=== PATIENT | female | born 1960 | race Two or more races ===

== ENCOUNTER 2018-02-17 14:33 | Emergency (ER) | payer OTHER ==
[~2018-02-17] VITALS: Ht 167.6 cm; Wt 95.3 kg
== END 2018-02-17 22:41 | disposition home or self-care (01) ==
LOC: ER 14:33
DX: R10.32 Left lower quadrant pain (principal)

== ENCOUNTER 2021-07-14 12:22 | Emergency (ER) | payer OTHER ==
[~2021-07-14] VITALS: Ht 165.1 cm; Wt 90.3 kg
== END 2021-07-14 18:17 | disposition home or self-care (01) ==
LOC: ER 12:22
DX: U07.1 COVID-19 (principal); J45.909 Unspecified asthma, uncomplicated; G70.00 Myasthenia gravis without (acute) exacerbation

== ENCOUNTER 2021-07-18 10:08 | Outpatient (CLI) | payer OTHER | END 2021-07-18 10:39 | disposition home or self-care (01) | LOC: ASH CLINIC 10:08 | PROVIDERS: ATTEND General Practice | DX: U07.1 COVID-19 (principal); Z23 Encounter for immunization ==

== ENCOUNTER 2022-03-11 10:54 | Emergency (ER) | payer OTHER ==
[~2022-03-11] VITALS: Ht 167.6 cm; Wt 92.5 kg
[~2022-03-11 10:54] MED LIST: MAXIMUM D3325 MCG; MELOXICAM15 MG; MESTINON60 M1 PO
[2022-03-11] MEDS ORDERED: CIPRO500 MG PO (16:11)
[2022-03-11] MEDS ORDERED: METRONIDAZOLE500 MG PO (16:11)
[2022-03-11] MEDS ORDERED: INTESTINEX680 M1 PO (16:11)
== END 2022-03-11 16:21 | disposition home or self-care (01) ==
LOC: ER 10:54
DX: K57.32 Diverticulitis of large intestine without perforation or abscess without bleeding (principal); N20.0 Calculus of kidney; G47.30 Sleep apnea, unspecified; Z88.8 Allergy status to other drugs, medicaments and biological substances; Z91.040 Latex allergy status

== ENCOUNTER 2022-10-06 10:49 | Emergency (ER) | payer OTHER ==
[~2022-10-06] VITALS: Ht 167.6 cm; Wt 95.3 kg
[~2022-10-06 10:49] MED LIST changes: +CIPRO500 MG PO; +INTESTINEX680 M1 PO; +METRONIDAZOLE500 MG PO
== END 2022-10-06 12:40 | disposition home or self-care (01) ==
LOC: ER 10:49
DX: L03.311 Cellulitis of abdominal wall (principal); G70.00 Myasthenia gravis without (acute) exacerbation; Z91.040 Latex allergy status; Z88.8 Allergy status to other drugs, medicaments and biological substances

== ENCOUNTER 2022-11-11 18:52 | Emergency (ER) | payer OTHER ==
[~2022-11-11] VITALS: Ht 167.6 cm; Wt 95.3 kg
== END 2022-11-12 00:22 | disposition home or self-care (01) ==
LOC: ER 18:52
DX: L03.90 Cellulitis, unspecified (principal)

== ENCOUNTER 2024-01-01 08:26 | Emergency (ER) | payer OTHER ==
[~2024-01-01] VITALS: Ht 167.6 cm; Wt 93.4 kg
[2024-01-01] MEDS ORDERED: DEXAMETHASONE SODIUM PHOSPHATE 4 MG/ML VIAL IM STA (09:20)
[2024-01-01] MEDS ORDERED: CODEINE PHOSPHATE/GUAIFENESIN 5 ML ML PO STA (09:20)
[2024-01-01] MEDS ORDERED: DEXAMETHASONE SODIUM PHOSPHATE 4 MG/ML VIAL ONE (09:26)
[2024-01-01 10:25] LABS: HEMATOCRIT 41.3 % (36.0-45.00); HEMOGLOBIN 13.9 g/dL (12.0-15.00); MEAN CELL VOLUME 83.7 fL (80.00-100.00); MEAN CORPUSCULAR HEMOGLOBIN 28.1 pg (27.00-32.0); MEAN CORPUSCULAR HGB CONC 33.6 g/dl (32.0-36.0); PLATELET COUNT 144 K/uL (150-450); RED BLOOD COUNT 4.94 M/uL (4.00-6.00); RED CELL DISTRIBUTION WIDTH 14.3 % (11.5-14.5)
[2024-01-01 10:49] LABS: ABG PH 7.405 (7.35-7.45); ABG PO2 83.6 mmHg (80-100); ABG pCO2 39.7 mmHg (35-45); BASE EXCESS -0.3 mmol/l; BICARBONATE 24.3 mmol/l (23-25); SaO2 96.2 %; Tco2 25.5 mmol/l; allen test SATISFACTORY; o2 21 %; puncture site RADIAL LEFT
[2024-01-01 11:02] LABS: CALCIUM 9.6 mg/dL (8.5-10.1); CREATININE SERUM 0.6 mg/dL (0.55-1.02); GFR 100.97; POTASSIUM 3.9 mEq/L (3.5-5.1)
[2024-01-01] MEDS ORDERED: PROAIR RESPICL90 MCG IH (11:09)
[2024-01-01] MEDS ORDERED: PAXLOVID 300-11 EAC1 PO (11:09)
[2024-01-01] MEDS ORDERED: ALLER-TEC10 MG PO (11:09)
[2024-01-01] MEDS ORDERED: ACETAMINOPHEN500 M1 PO (11:09)
[2024-01-01] MEDS ORDERED: MUCINEX DM ER1 EAC1 PO (11:09)
== END 2024-01-01 12:39 | disposition home or self-care (01) ==
LOC: ER 08:27
PROVIDERS: General Practice
DX: U07.1 COVID-19 (principal); B34.9 Viral infection, unspecified; J06.9 Acute upper respiratory infection, unspecified; R53.81 Other malaise; Z88.8 Allergy status to other drugs, medicaments and biological substances; Z91.040 Latex allergy status

== ENCOUNTER → 2024-08-21 | Emergency (ER) | payer OTHER ==
[~2024-08-21] VITALS: Ht 167.6 cm; Wt 99.8 kg
[~2024-08-21] MED LIST changes: +ACETAMINOPHEN500 M1 PO; +ALLER-TEC10 MG PO; +KETOROLAC TROMETHAMINE 60 MG VIAL IM ONE; +MUCINEX DM ER1 EAC1 PO; +PAXLOVID 300-11 EAC1 PO; +PROAIR RESPICL90 MCG IH
[2024-08-21 16:22] LABS: HEMATOCRIT 42.1 % (36.0-45.00); HEMOGLOBIN 13.8 g/dL (12.0-15.00); MEAN CELL VOLUME 84.5 fL (80.00-100.00); MEAN CORPUSCULAR HEMOGLOBIN 27.7 pg (27.00-32.0); MEAN CORPUSCULAR HGB CONC 32.8 g/dl (32.0-36.0); PLATELET COUNT 163 K/uL (150-450); RED BLOOD COUNT 4.98 M/uL (4.00-6.00); RED CELL DISTRIBUTION WIDTH 14.3 % (11.5-14.5)
== END | disposition home or self-care (01) ==
LOC: ER 11:44
PROVIDERS: General Practice
DX: B34.9 Viral infection, unspecified (principal); R53.81 Other malaise; Z20.822 Contact with and (suspected) exposure to COVID-19; Z88.8 Allergy status to other drugs, medicaments and biological substances; Z91.040 Latex allergy status

== ENCOUNTER 2025-01-21 01:09 | Emergency (ER) | payer OTHER ==
[~2025-01-21] VITALS: Ht 165.1 cm; Wt 95.3 kg
[~2025-01-21 01:09] MED LIST changes: -KETOROLAC TROMETHAMINE 60 MG VIAL IM ONE
[2025-01-21] MEDS ORDERED: METHYLPREDNISOLONE SOD SUCC 125 MG VIAL IV STA (02:08)
[2025-01-21] MEDS ORDERED: HYDROCODONE/CHLORPHEN P-STIREX 5 ML ML PO STA (02:09)
[2025-01-21] MEDS ORDERED: IPRATROPIUM/ALBUTEROL SULFATE 3 ML AMPUL.NEB IH SCH (02:09)
[2025-01-21] MEDS ORDERED: IPRATROPIUM/ALBUTEROL SULFATE 3 ML AMPUL.NEB IH ONE ×2 (02:14→02:19)
[2025-01-21] MEDS ORDERED: METHYLPREDNISOLONE SOD SUCC 125 MG VIAL ONE (02:21)
[2025-01-21 02:40] LABS: BASO % 0.5 % (0.1-1.2); EOS # 0.19 (0.04-0.54); EOS % 2.3 % (0.7-7.0); LYMPH # 1.95 (1.18-3.74); LYMPH % 23.4 % (19.3-53.1); MEAN PLATELET VOLUME 12.40 fl (9.4-12.4); MONO # 0.76 (0.24-0.82); MONO % 9.1 % (4.7-12.5); NEUT # 5.38 (1.56-6.13); NEUT % 64.3 % (34.0-71.1); RED CELL DISTRIBUTION WIDTH 13.3 % (11.6-14.4)
[2025-01-21 03:25] LABS: COVID-19 AG NEGATIVE (NEGATIVE)
== END 2025-01-21 04:13 | disposition home or self-care (01) ==
LOC: ER 01:09
DX: J06.9 Acute upper respiratory infection, unspecified (principal); J45.909 Unspecified asthma, uncomplicated; Z91.040 Latex allergy status; Z88.8 Allergy status to other drugs, medicaments and biological substances; Z20.822 Contact with and (suspected) exposure to COVID-19

== ENCOUNTER 2025-02-25 07:54 | Emergency (ER) | payer OTHER ==
[~2025-02-25] VITALS: Ht 165.1 cm; Wt 95.3 kg
[2025-02-25] MEDS ORDERED: FAMOTIDINE/PF 20 MG in 0.9 % SODIUM CHLORIDE 8 ML IV PUSH STA (08:37)
[2025-02-25] MEDS ORDERED: KETOROLAC TROMETHAMINE 30 MG VIAL IV ONE (08:45)
[2025-02-25] MEDS ORDERED: 0.9 % SODIUM CHLORIDE 1,000 ML IV SCH (08:45)
[2025-02-25 09:35] LABS: BASO % 0.7 % (0.1-1.2); EOS # 0.18 (0.04-0.54); EOS % 2.7 % (0.7-7.0); LYMPH # 1.67 (1.18-3.74); LYMPH % 24.7 % (19.3-53.1); MEAN PLATELET VOLUME 12.00 fl (9.4-12.4); MONO # 0.45 (0.24-0.82); MONO % 6.6 % (4.7-12.5); NEUT # 4.40 (1.56-6.13); NEUT % 65.0 % (34.0-71.1); RED CELL DISTRIBUTION WIDTH 13.3 % (11.6-14.4)
[2025-02-25 09:55] LABS: URINE APPEARANCE Clear; URINE BILIRRUBIN Negative (NEGATIVE); URINE BLOOD Moderate; URINE COLOR Yellow; URINE GLUCOSE Negative (NEGATIVE); URINE KETONE Negative (NEGATIVE); URINE LEUKOCYTE Negative; URINE NITRATE Negative; URINE PROTEIN Negative (NEGATIVE); URINE UROBILINOGEN 0.2 E.U./dl
[2025-02-25 10:00] LABS: URINE BACTERIA 26.3 uL (0.0-1933); URINE EPITHELIAL CELLS 7.3 uL (0.0-38.8); URINE RBC 4.3 uL (0.0-20.8); URINE WBC 11.6 uL (0.0-23.2)
[2025-02-25 10:16] LABS: URINE CAST 0.43 uL (0.0-1.40)
[2025-02-25 10:30] LABS: ALT/SGPT 28.0 U/L (12-78); AST/SGOT 15.0 U/L (15-37); BILIRUBIN TOTAL 0.66 mg/dL (0.3-1.2); BUN CREA RATIO 20.0 (7.0-25.0); CREATININE SERUM 0.64 mg/dL (0.55-1.02); GFR 93.42; GLOBULINA 3.9 G/DL (2.4-3.5); GLUCOSE FASTING 100.0 mg/dL (65-100); OSMOLALITY SERUM 283.0 MOSM/KG (275-295)
[2025-02-25] MEDS ORDERED: LEVSIN/SL0.125 MG SL (12:12)
[2025-02-25] MEDS ORDERED: METRONIDAZOLE500 MG PO (12:12)
[2025-02-25] MEDS ORDERED: CIPRO500 MG PO (12:12)
[2025-02-25] MEDS ORDERED: INTESTINEX680 M1 PO (12:12)
[2025-02-25] MEDS ORDERED: PROTONIX40 MG PO (12:12)
== END 2025-02-25 12:25 | disposition home or self-care (01) ==
LOC: ER 07:54
PROVIDERS: General Practice
DX: K57.32 Diverticulitis of large intestine without perforation or abscess without bleeding (principal); R10.2 Pelvic and perineal pain; Z91.040 Latex allergy status; Z88.8 Allergy status to other drugs, medicaments and biological substances

== ENCOUNTER → 2025-06-04 | Emergency (ER) | payer OTHER ==
[~2025-06-04] VITALS: Ht 165.1 cm; Wt 97.1 kg
[~2025-06-04] MED LIST changes: +ACETAMINOPHEN 500 MG GEL..CAP PO ONE; +IPRATROPIUM BROMIDE 0.5 MG/2.5 ML AMPUL.NEB IH ONE; +LEVALBUTEROL HCL 1.25 MG/3 ML SOLUTION IH SCH; +LEVSIN/SL0.125 MG SL; +METHYLPREDNISOLONE SOD SUCC 125 MG VIAL IV ONE; +METHYLPREDNISOLONE SOD SUCC 125 MG VIAL ONE; +OSEL75CA PO; +PROTONIX40 MG PO
[2025-06-04 10:50] VITALS: BP 110/72; O2SAT 99
[2025-06-04 13:51] LABS: BASO % 0.4 % (0.1-1.2); EOS # 0.25 (0.04-0.54); EOS % 2.8 % (0.7-7.0); LYMPH # 1.22 (1.18-3.74); LYMPH % 13.7 % (19.3-53.1); MEAN PLATELET VOLUME 12.70 fl (9.4-12.4); MONO # 0.53 (0.24-0.82); MONO % 5.9 % (4.7-12.5); NEUT # 6.85 (1.56-6.13); NEUT % 76.8 % (34.0-71.1); RED CELL DISTRIBUTION WIDTH 13.6 % (11.6-14.4)
[2025-06-04 14:32] LABS: ALT/SGPT 27.0 U/L (12-78); AST/SGOT 19.0 U/L (15-37); BILIRUBIN TOTAL 0.67 mg/dL (0.3-1.2); BUN CREA RATIO 18.0 (7.0-25.0); CREATININE SERUM 0.78 mg/dL (0.55-1.02); GFR 74.35; GLOBULINA 4.1 G/DL (2.4-3.5); GLUCOSE FASTING 90.0 mg/dL (65-100); OSMOLALITY SERUM 285.0 MOSM/KG (275-295)
[2025-06-04 16:31] LABS: COVID-19 AG NEGATIVE (NEGATIVE)
== END | disposition home or self-care (01) ==
LOC: ER 09:40
DX: J10.1 Influenza due to other identified influenza virus with other respiratory manifestations (principal); R53.1 Weakness; R50.9 Fever, unspecified; R05.8 Other specified cough; R06.02 Shortness of breath; R51.9 Headache, unspecified; Z88.8 Allergy status to other drugs, medicaments and biological substances; Z91.040 Latex allergy status; Z20.822 Contact with and (suspected) exposure to COVID-19